=== PATIENT | male | born 1965 | race African-American/Black ===

== ENCOUNTER 2019-05-27 17:03 | Inpatient (IN) | payer MEDICAID ==
[~2019-05-27] VITALS: Ht 175.3 cm; Wt 95.3 kg
[2019-05-27] MEDS ORDERED: KLONOPIN0.5 MG PO (17:16)
[2019-05-27] MEDS ORDERED: NEURONTIN 300300 MG PO (17:17)
[2019-05-27] MEDS ORDERED: CYMBALTA20 MG PO (17:17)
[2019-05-27] MEDS ORDERED: TRAZODONE HCL150 MG PO (17:18)
[2019-05-27] MEDS ORDERED: TESSALON PERLE100 MG PO (17:19)
[2019-05-27] MEDS ORDERED: HYDROCODON-ACE1 EA10 PO (17:20)
[2019-05-27 18:11] LABS: BASOPHILS 0.9 % (0-2); EOSINOPHILS 3.9 % (0-7); HEMATOCRIT 47.4 % (42.0-54.0); HEMOGLOBIN 15.5 g/dL (13.5-17.5); IMMATURE GRANULOCYTES 0.2 % (0-5); LYMPHOCYTES 31.1 % (15-50); MCH 31.7 pg (26.0-34.0); MCHC 32.7 g/dL (31.0-37.0); MCV 96.9 fL (80.0-100.0); MEAN PLATELET VOLUME 9.6 fL (7.4-10.4); MONOCYTES 6.7 % (2-11); NEUTROPHILS 57.2 % (40-80); PLATELET COUNT 361 10x3/uL (130-400); RBC 4.89 10x6/uL (4.20-6.10); RDW 14.4 % (11.5-14.5); WBC 9.9 10x3/uL (4.8-10.8)
[2019-05-27 18:15] LABS: ANION GAP 14.7 mmol/L (8-16); CALCIUM 9.3 mg/dL (8.5-10.1); CARBON DIOXIDE 25.8 mmol/L (21.0-32.0); CREATININE - SERUM 1.1 mg/dL (0.6-1.3); POTASSIUM - SERUM 3.5 mmol/L (3.5-5.1)
[2019-05-27 18:29] LABS: ALBUMIN 3.7 g/dL (3.4-5.0); BILIRUBIN - TOTAL 0.63 mg/dL (0.2-1.3); PROTEIN - SERUM 7.8 g/dL (6.4-8.2)
[2019-05-27 19:09] LABS: CKMB 0.6 U/L (0.0-3.6); CREATINE KINASE 93 UL (21-232)
[2019-05-27 19:10] LABS: TROPONIN-I < 0.017 ng/mL (0.000-0.060)
[2019-05-27 20:44] VITALS: BP 153/85
--- NOTE | 2019-05-27 20:44 | NUR ---
REC'D PATIENT FROM ER TO ROOM 1206. PATIENT DENIES NEEDS AT THIS TIME. BED IN LOWEST POSITION AND CALL LIGHT WITHIN REACH. ENCOURAGED THE PATIENT TO CALL IF HE HAS NEEDS. VSS. WILL CONTINUE TO MONITOR.
[2019-05-27] MEDS ORDERED: CARDURA2 MG PO (22:41)
[2019-05-27] MEDS ORDERED: BACLOFEN10 MG PO (22:41)
[2019-05-27] MEDS ORDERED: TENORMIN50 MG PO (22:42)
[2019-05-27 22:43] VITALS: BP 153/85; BMI 31.0
[2019-05-28] VITALS (7 sets, daily range): BP systolic 122–164; BP diastolic 61–97; Ht 175.3 cm; Wt 95.3 kg
[2019-05-28 06:11] LABS: BASOPHILS 0.1 % (0-2); EOSINOPHILS 0 % (0-7); HEMATOCRIT 45.3 % (42.0-54.0); HEMOGLOBIN 14.7 g/dL (13.5-17.5); IMMATURE GRANULOCYTES 0.1 % (0-5); LYMPHOCYTES 7.5 % (15-50); MCH 31.2 pg (26.0-34.0); MCHC 32.5 g/dL (31.0-37.0); MCV 96.2 fL (80.0-100.0); MEAN PLATELET VOLUME 9.8 fL (7.4-10.4); MONOCYTES 0.5 % (2-11); NEUTROPHILS 91.8 % (40-80); PLATELET COUNT 395 10x3/uL (130-400); RBC 4.71 10x6/uL (4.20-6.10); RDW 14.3 % (11.5-14.5); WBC 8.4 10x3/uL (4.8-10.8)
[2019-05-28 06:28] LABS: ALBUMIN 3.3 g/dL (3.4-5.0); BILIRUBIN - TOTAL 0.29 mg/dL (0.2-1.3); CALCIUM 9.6 mg/dL (8.5-10.1); CARBON DIOXIDE 25.4 mmol/L (21.0-32.0); CREATININE - SERUM 1.3 mg/dL (0.6-1.3); PROTEIN - SERUM 6.8 g/dL (6.4-8.2)
[2019-05-28 06:37] LABS: ANION GAP 16.1 mmol/L (8-16); POTASSIUM - SERUM 4.5 mmol/L (3.5-5.1)
--- NOTE | 2019-05-28 07:33 | NUR ---
AM ROUNDS- PT IN BED, EATING BREAKFAST. A/O X4, RESP EVEN AND NONLABORED ON 2L NC. RT AC IV SL. MONITOR SHOWING SR WITH RATE OF 98. PT ASKED FOR A SODA, WILL PROVIDE PT WITH SODA. PT DENIES ANY OTHER NEEDS AT THIS TIME. CALL LIGHT IN REACH, NAD NOTED, WILL CONTINUE PLAN OF CARE.
--- NOTE | 2019-05-28 11:30 | NUR ---
SCHEDULED TYLENOL GIVEN, PT RATES PAIN LEVEL OF 7/10. PT DENIES ANY OTHER NEEDS AT THIS TIME. VITAL SIGNS STABLE, CALL LIGHT IN REACH, BEDSIDE RAILS X2, NAD NOTED, WILL CONTINUE TO MONITOR.
--- NOTE | 2019-05-28 14:24 | NUR ---
PT RESTING COMFORTABLY WITH EYES CLOSED, CALL LIGHT IN REACH, NAD NOTED, WILL CONTINUE TO MONITOR.
--- NOTE | 2019-05-28 15:00 | NUR ---
MEDICATIONS GIVEN ORDERED, PT RATES PAIN LEVEL OF 7/10, SCHEDULED NORCO GIVEN. IVPB LEVAQUIN HUNG AT THIS TIME. PT RESTING COMFORTABLY IN BED, DENIES ANY NEEDS AT THIS TIME. CALL LIGHT IN REACH, NAD NOTED, WILL CONTINUE TO MONITOR.
--- NOTE | 2019-05-28 16:19 | MORECARE ---
CASE MANAGEMENT DISCHARGE SUMMARY PATIENT: GAIL GALEANA UNIT: [id number] ADM DATE: 05/27/19 AGE: 54 : 63 SEX: M ROOM/BED: D.1206 AUTHOR: KRYSDOC PHYSICIAN: REFERRING PHYSICIAN: ANU MCKEON MD DATE OF SERVICE: 05/28/19 Discharge Plan Patient Name: GAIL GALEANA Facility: [facility]:[place] : 1965 Planned Disposition: Home Anticipated Discharge Date: Discharge Date: Expected LOS: Initial Reviewer: [id number] Initial Review Date: 05/28/2019 Generated: 05/28/19 5:19 pm Comments DCP- Discharge Planning Updated by [id number]: Bonnie Gonzalez on 05/28/19 3:[address] Patient Name: GAIL GALEANA Admission Status: ER Accout number: [id number] Admission Date: 05-27-2019 : 1965 Admission Diagnosis: Attending: ANU MCKEON Current LOS: 1 Anticipated DC Date: Planned Disposition: Home Primary Insurance: MEDICAID [place] Discharge Planning Comments: CM MET WITH PATIENT AFTER OBTAINING VERBAL CONSENT. STATES PLANS TO DISCHARGE TO HOME. DISCUSSED NEED FOR HH, REHAB OR EQUIPMENT, PATIENT STATES NO NEEDS EXCEPT PORTABLE 02. STATES HE HAD PORTABLE BUT WHEN HIS INSURANCE CHANGED THEY TOOK IT. HAS 02 WITH [facility], I WILL CONTACT THEM TO SEE WHAT THE ISSUE IS WITH IT. CM WILL FOLLOW AND ASSIST NEEDED. Arch Cushion Press Operator: Bonnie Gonzalez Appended by Bonnie Gonzalez on 05/28/2019 16:19 WET POUR SUPERVISOR: I SPOKE WITH DUANE AT [facility] AND THEY WILL NEED A WALK TEST BEFORE DISCHARGE SO THEY CAN SET HIM UP WITH PORTABLE OXYGEN. DCPIA - Discharge Planning Initial Assessment Updated by [email or web address]: Bonnie Gonzalez on 05/28/19 4:12 pm * Is the patient Alert and Oriented? Yes * PCP [facility] * [facility] * Preadmission Environment Home with Family * ADLs Independent * Other Equipment 02, NEBS, DID HAVE PORTABLE UNTIL INSURANCE CHANGED * List name and contact numbers for known caregivers / representatives who currently or will assist patient after discharge: JESSI, , * Verbal permission to speak to the caregivers and representatives has been obtained from the patient. Yes * Community resources currently utilized None * Additional services required to return to the preadmission environment? No * Can the patient safely return to the preadmission environment? Yes * Has this patient been hospitalized within the prior 30 days at any hospital? No External Providers External Provider: Kaitlin Jimenez Contact Date: Service Request Date: Service Type: Resolution: Reviewer: Comments: Patient Name: GAIL GALEANA Page 30101 at 1619 All edits/amendments must be made on the electronic document DICTATION DATE: 05/28/191617 PRINTING MACHINIST: KAILEE 05/28/191617 RPT#: [id number] [place] DATE: STATUS: ADM IN [facility] [address] [place] [address] END OF REPORT
--- NOTE | 2019-05-28 16:28 | MORECARE ---
CASE MANAGEMENT DISCHARGE SUMMARY PATIENT: GAIL GALEANA UNIT: [id number] ADM DATE: 05/27/19 AGE: 54 : 63 SEX: M ROOM/BED: D.1206 AUTHOR: KRYSDOC PHYSICIAN: REFERRING PHYSICIAN: ANU MCKEON MD DATE OF SERVICE: 05/28/19 Discharge Plan Patient Name: GAIL GALEANA Facility: [facility]:[place] : 1965 Planned Disposition: Home Anticipated Discharge Date: Discharge Date: Expected LOS: Initial Reviewer: [email or web address] Initial Review Date: 05/28/2019 Generated: 05/28/19 5:27 pm Comments DCP- Discharge Planning Updated by [email or web address]: Bonnie Gonzalez on 05/28/19 3:[address] Patient Name: GAIL GALEANA Admission Status: ER Accout number: [id number] Admission Date: 05-27-2019 : 1965 Admission Diagnosis: Attending: ANU MCKEON Current LOS: 1 Anticipated DC Date: Planned Disposition: Home Primary Insurance: MEDICAID [place] Discharge Planning Comments: CM MET WITH PATIENT AFTER OBTAINING VERBAL CONSENT. STATES PLANS TO DISCHARGE TO HOME. DISCUSSED NEED FOR HH, REHAB OR EQUIPMENT, PATIENT STATES NO NEEDS EXCEPT PORTABLE 02. STATES HE HAD PORTABLE BUT WHEN HIS INSURANCE CHANGED THEY TOOK IT. HAS 02 WITH [facility], I WILL CONTACT THEM TO SEE WHAT THE ISSUE IS WITH IT. CM WILL FOLLOW AND ASSIST NEEDED. Chip Loft Worker: Bonnie Gonzalez Appended by Bonnie Gonzalez on 05/28/2019 16:19 STORE DELI MANAGER: I SPOKE WITH DUANE AT [facility] AND THEY WILL NEED A WALK TEST BEFORE DISCHARGE SO THEY CAN SET HIM UP WITH PORTABLE OXYGEN. DCPIA - Discharge Planning Initial Assessment Updated by [id number]: Bonnie Gonzalez on 05/28/19 4:12 pm * Is the patient Alert and Oriented? Yes * PCP [facility] * [facility] * Preadmission Environment Home with Family * ADLs Independent * Other Equipment 02, NEBS, DID HAVE PORTABLE UNTIL INSURANCE CHANGED * List name and contact numbers for known caregivers / representatives who currently or will assist patient after discharge: JESSI, , * Verbal permission to speak to the caregivers and representatives has been obtained from the patient. Yes * Community resources currently utilized None * Additional services required to return to the preadmission environment? No * Can the patient safely return to the preadmission environment? Yes * Has this patient been hospitalized within the prior 30 days at any hospital? No Last DP export: 05/28/19 3:19 p Patient Name: GAIL GALEANA Page [phone] at 1628 All edits/amendments must be made on the electronic document DICTATION DATE: 05/28/191626 CURTAIN DRIER: KAILEE 05/28/191626 RPT#: [id number] DC DATE: STATUS: ADM IN [facility] [address] [place] [address] END OF REPORT
--- NOTE | 2019-05-28 17:11 | NUR ---
INFORMED PT OF NEED FOR URINE SAMPLE, PROVIDED PT WITH COLLECTION CONTAINER AND ASKED HIM TO NOTIFY THIS NURSE WHEN SAMPLE IS READY.
--- NOTE | 2019-05-28 19:21 | NUR ---
PATIENT RESTING IN BED WITH NO S/S OF DISTRESS. BROUGHT PATIENT A HOT PACK PER HIS REQUEST. VSS. PATIENT DENIES OTHER NEEDS AT THIS TIME. BED IN LOWEST POSITION AND CALL LIGHT WITHIN REACH. ENCOURAGED THE PATIENT TO CALL IF HE HAS NEEDS. WILL CONTINUE TO MONITOR.
[2019-05-28 22:49] LABS: APPEARANCE CLEAR (CLEAR); BILIRUBIN NEGATIVE (NEGATIVE); COLOR YELLOW (YELLOW); GLUCOSE NEGATIVE (NEGATIVE); KETONE NEGATIVE (NEGATIVE); NITRITE NEGATIVE (NEGATIVE); PROTEIN NEGATIVE (NEGATIVE); UROBILINOGEN NORMAL (NORMAL)
[2019-05-28 22:51] LABS: UDS - AMPHET NEGATIVE QUAL (NEGATIVE); UDS - BARB NEGATIVE QUAL (NEGATIVE); UDS - BENZO NEGATIVE QUAL (NEGATIVE); UDS - COCAINE NEGATIVE QUAL (NEGATIVE); UDS - OPIATE NEGATIVE QUAL (NEGATIVE); UDS - PCP NEGATIVE QUAL (NEGATIVE); UDS - THC NEGATIVE QUAL (NEGATIVE)
[2019-05-29 03:13] VITALS: BP 135/76
[2019-05-29 06:17] LABS: ANION GAP 12.3 mmol/L (8-16); CALCIUM 9.5 mg/dL (8.5-10.1); CREATININE - SERUM 1.1 mg/dL (0.6-1.3); POTASSIUM - SERUM 4.3 mmol/L (3.5-5.1)
[2019-05-29 06:53] LABS: HEMATOCRIT 44.1 % (42.0-54.0); HEMOGLOBIN 14.6 g/dL (13.5-17.5); LYMPHOCYTES 4.8 % (15-50); MCH 31.3 pg (26.0-34.0); MCHC 33.1 g/dL (31.0-37.0); MCV 94.4 fL (80.0-100.0); NEUTROPHILS 91.5 % (40-80); PLATELET COUNT 323 10x3/uL (130-400); RBC 4.67 10x6/uL (4.20-6.10); RDW 14.1 % (11.5-14.5); WBC 17.1 10x3/uL (4.8-10.8)
--- NOTE | 2019-05-29 07:29 | NUR ---
PT RESTING IN BED, EYES CLOSED. RR ARE EVEN AND UNLABORED. WCTM.
[2019-05-29 09:00] VITALS: BP 139/75
--- NOTE | 2019-05-29 13:30 | NUR ---
FLUTTER VALVE AND INSTRUCTION PROVIDED TO PT PER DR DEONNA PERAZA. PT STATES AND DEMONSTRATES UNDERSTANDING.
[2019-05-29 20:08] VITALS: BP 148/87
--- NOTE | 2019-05-29 22:58 | NUR ---
ASSESSED AT THE BEGINNING OF THE SHIFT. PT IS ALERT AND ORIENTED, ABLE TO VERBALIZE NEEDS. ASSISTED UP TO BATHROOM TO VOID AND IS IN BED WATCHING FOOTBALL. IV SITE WAS DRAINING FLUIDS AND AT THIS TIME WAS DC'D. WILL RESTART IT AGAIN LATER.
[2019-05-30] VITALS: BP 159/96
[2019-05-30 04:00] VITALS: BP 142/76
[2019-05-30 05:56] LABS: BASOPHILS 0 % (0-2); EOSINOPHILS 0 % (0-7); HEMATOCRIT 45.4 % (42.0-54.0); HEMOGLOBIN 14.8 g/dL (13.5-17.5); IMMATURE GRANULOCYTES 0.3 % (0-5); LYMPHOCYTES 5.2 % (15-50); MCHC 32.6 g/dL (31.0-37.0); MCV 95.2 fL (80.0-100.0); MEAN PLATELET VOLUME 9.9 fL (7.4-10.4); MONOCYTES 5.5 % (2-11); PLATELET COUNT 386 10x3/uL (130-400); RBC 4.77 10x6/uL (4.20-6.10); RDW 14.2 % (11.5-14.5); WBC 16.4 10x3/uL (4.8-10.8)
[2019-05-30 06:06] LABS: ANION GAP 10.4 mmol/L (8-16); CALCIUM 9.6 mg/dL (8.5-10.1); CARBON DIOXIDE 29.4 mmol/L (21.0-32.0); CREATININE - SERUM 1.1 mg/dL (0.6-1.3); POTASSIUM - SERUM 4.8 mmol/L (3.5-5.1)
--- NOTE | 2019-05-30 07:19 | NUR ---
PT RESTING IN BED, TALKING ON PHONE. O2 IN PLACE AT 2LPM. IV TO LEFT HAND IS S'LOCKED. PT DENIES NEEDS. WCTM.
[2019-05-30 08:00] VITALS: BP 152/91
[2019-05-30 20:05] VITALS: BP 151/84
[2019-05-31] VITALS: BP 165/105
--- NOTE | 2019-05-31 03:36 | NUR ---
ASSESSED AT THE BEGINNING OF THE SHIFT. PT IS ALERT AND ORIENTED, ABLE TP VERBALIZE NEEDS. HE IS WEARING O2 AT 2 LITERS AND IS SHOWING 80'S SR ON HIS TELEMETRY. [facility] HAS BEEN SET UP SCHEDUELED FOR HIS CHRONIC BACK PAIN AND THIS SEEMS TO BE WORKING. HE HAS BEEN UP TO THE BATHROOM AD AMY AND WATCHING TV MOST OF THE NIGHT. BED IS LOW AND RAILS UP X'S 2.
[2019-05-31 04:00] VITALS: BP 158/53
[2019-05-31 05:47] LABS: BASOPHILS 0 % (0-2); EOSINOPHILS 0 % (0-7); HEMATOCRIT 45.5 % (42.0-54.0); HEMOGLOBIN 15.1 g/dL (13.5-17.5); IMMATURE GRANULOCYTES 0.4 % (0-5); LYMPHOCYTES 5.8 % (15-50); MCH 31.3 pg (26.0-34.0); MCHC 33.2 g/dL (31.0-37.0); MCV 94.4 fL (80.0-100.0); MEAN PLATELET VOLUME 9.8 fL (7.4-10.4); MONOCYTES 7.4 % (2-11); NEUTROPHILS 86.4 % (40-80); PLATELET COUNT 386 10x3/uL (130-400); RBC 4.82 10x6/uL (4.20-6.10); RDW 14.2 % (11.5-14.5); WBC 15.2 10x3/uL (4.8-10.8)
[2019-05-31 06:17] LABS: CALC OSMOLALITY 279 mosm/kg (275-300); CALCIUM 9.7 mg/dL (8.5-10.1); CARBON DIOXIDE 29.8 mmol/L (21.0-32.0); CHLORIDE - SERUM 99 mmol/L (98-107); GLUCOSE 120 mg/dL (74-106); POTASSIUM - SERUM 4.5 mmol/L (3.5-5.1); SODIUM 138 mmol/L (136-145); UREA NITROGEN 21 mg/dL (7-18); eGFR NON AFRICAN AMERICAN 82 mL/min (90-120)
[2019-05-31 07:56] VITALS: BP 160/90
[2019-05-31 12:18] VITALS: BP 143/74
--- NOTE | 2019-05-31 12:35 | NUR ---
PT LYING IN BED. RESTING QUIETLY. O2 AT 2L VIA NC. PT STATES HE HAS NO FURTHER NEEDS AT THIS TIME. BED LOW. CL IN REACH.
--- NOTE | 2019-05-31 14:43 | NUR ---
LEFT HAND 22G IV INFILTRATED. DC'D WITH CATH INTACT. PT STATES HE IS A HARD STICK AND "I NEED TO CALL SOMEBODY." CALLED ER AND THEY STATED THEY WILL TALK TO THE CHARGE NURSE AND SEE IF THEY CAN'T SEND SOMEBODY.
--- NOTE | 2019-05-31 15:17 | NUR ---
STATED TO DR. MCKEON THAT PT HAS NO IV ACCESS AND ER IS SUPPOSSED TO COME AND TRY GAIN ACCESS BUT PT IS ON SOLUMEDROL AND LEVAQUIN IV. HE STATES WE COULD CHANGE THE LEVAQUIN TO PT BUT JUST GET A MIDLINE. I STATED TO HIM VASCULAR ACCESS NURSE IS NOT HERE ON THE WEEKEND TO PLACE A MIDLINE. HE STATES "OH, SHE'S NOT. WELL OK." AND WENT INTO A PATIENT'S ROOM.
--- NOTE | 2019-05-31 15:20 | NUR ---
PT TOOK SHOWER BY FRED.
--- NOTE | 2019-05-31 19:07 | NUR ---
I have reviewed this patient and I concur with the Shift Assessment completed by the Licensed Practical Nurse today this shift.
[2019-05-31 19:27] VITALS: BP 160/93
--- NOTE | 2019-05-31 19:27 | NUR ---
PATIENT RESTING IN BED WITH NO S/S OF DISTRESS AND DENIES NEEDS AT THIS TIME. VSS. BED IN LOWEST POSITION AND CALL LIGHT WITHIN REACH. ENCOURAGED THE PATIENT TO CALL IF HE HAS NEEDS. WILL CONTINUE TO MONITOR.
--- NOTE | 2019-05-31 20:42 | NUR ---
PATIENT RESTING IN BED AND DENIES NEEDS AT THIS TIME. ADMINISTERED MEDS PER ORDERS. PATIENT DENIES OTHER NEEDS AT THIS TIME. BED IN LOWEST POSITION AND CALL LIGHT WITHIN REACH. ENCOURAGED THE PATIENT TO CALL IF HE HAS NEEDS. WILL CONTINUE TO MONITOR.
--- NOTE | 2019-05-31 22:58 | NUR ---
UNABLE TO OBTAIN IV ACCESS
[2019-05-31 23:45] VITALS: BP 165/94
--- NOTE | 2019-06-01 03:47 | NUR ---
PATIENT RESTING IN BED WITH EYES CLOSED AND NO S/S OF DISTRESS. WILL CONTINUE TO MONITOR.
[2019-06-01 04:44] VITALS: BP 157/95
[2019-06-01 05:32] LABS: BASOPHILS 0 % (0-2); EOSINOPHILS 0 % (0-7); HEMATOCRIT 46.3 % (42.0-54.0); IMMATURE GRANULOCYTES 0.7 % (0-5); MCH 30.9 pg (26.0-34.0); MCHC 32.4 g/dL (31.0-37.0); MCV 95.3 fL (80.0-100.0); MONOCYTES 9.7 % (2-11); NEUTROPHILS 78.6 % (40-80); PLATELET COUNT 394 10x3/uL (130-400); RBC 4.86 10x6/uL (4.20-6.10); RDW 14.3 % (11.5-14.5); WBC 14.9 10x3/uL (4.8-10.8)
[2019-06-01 05:57] LABS: ANION GAP 11.1 mmol/L (8-16); CALCIUM 9.1 mg/dL (8.5-10.1); CARBON DIOXIDE 31.6 mmol/L (21.0-32.0); CREATININE - SERUM 1.2 mg/dL (0.6-1.3)
[2019-06-01 05:58] LABS: POTASSIUM - SERUM 3.7 mmol/L (3.5-5.1)
[2019-06-01 07:40] VITALS: BP 164/92
--- NOTE | 2019-06-01 07:59 | NUR ---
PT SITTING UP IN BED EATING BREAKFAST. RR EVEN AND UNLABORED. FREQUESNT, NONPRODUCTIVE COUGH. WHEEZING NOTED TO BILATERAL LOWER LOBES. AXO. ASSESSMENT COMPLETE. PT STATES HE HAS A HEADACHE FROM COUGHING BUT SAID HE ALREADY HAD PAIN MEDICATION AND DOES NOT NEED ANYMORE AT THIS TIME. VSS. BED IN LOWEST POSITION. CALL LIGHT WITHIN REACH. WILL CONTINUE TO MONITOR.
--- NOTE | 2019-06-01 11:05 | NUR ---
I have reviewed this patient and I concur with the Shift Assessment completed by the Licensed Practical Nurse today this shift.
--- NOTE | 2019-06-01 11:51 | NUR ---
22G SITED TO RIGHT FOREARM X2 ATTEMPTS.
[2019-06-01 19:22] VITALS: BP 144/99
--- NOTE | 2019-06-01 20:57 | NUR ---
ADMINISTERED MEDS PER ORDERS. PATIENT DENIES OTHER NEEDS AT THIS TIME. ENCOURAGED PATIENT TO CALL IF HE HAS NEEDS.
[2019-06-01 23:10] VITALS: BP 158/95
[2019-06-02 04:44] VITALS: BP 161/93
[2019-06-02 06:31] LABS: CALC OSMOLALITY 285 mosm/kg (275-300); CALCIUM 9.5 mg/dL (8.5-10.1); CARBON DIOXIDE 30.8 mmol/L (21.0-32.0); CHLORIDE - SERUM 101 mmol/L (98-107); GLUCOSE 121 mg/dL (74-106); SODIUM 141 mmol/L (136-145); UREA NITROGEN 24 mg/dL (7-18); eGFR NON AFRICAN AMERICAN 82 mL/min (90-120)
[2019-06-02 06:37] LABS: POTASSIUM - SERUM 5.3 mmol/L (3.5-5.1)
[2019-06-02 06:44] LABS: BASOPHILS 0.1 % (0-2); EOSINOPHILS 0 % (0-7); HEMATOCRIT 46.5 % (42.0-54.0); HEMOGLOBIN 15.4 g/dL (13.5-17.5); IMMATURE GRANULOCYTES 0.9 % (0-5); LYMPHOCYTES 6.7 % (15-50); MCH 31.1 pg (26.0-34.0); MCHC 33.1 g/dL (31.0-37.0); MCV 93.9 fL (80.0-100.0); MEAN PLATELET VOLUME 10.1 fL (7.4-10.4); NEUTROPHILS 86.3 % (40-80); PLATELET COUNT 374 10x3/uL (130-400); RBC 4.95 10x6/uL (4.20-6.10); RDW 14.1 % (11.5-14.5); WBC 11.7 10x3/uL (4.8-10.8)
[2019-06-02 07:00] VITALS: BP 168/97
--- NOTE | 2019-06-02 07:07 | NUR ---
PT RESTING IN BED WATCHING TV. VSS AND WNL. CALL LIGHT WITHIN REACH. SHIFT ASSESSMENT PERFORMED, PT ANSWERS ALL QUESTIONS. 2L NC NOTED. PT STATES HE HAD A BM THIS AM. DENIES ANY NEEDS AT THIS TIME, WILL CONT TO FOLLOW POC
[2019-06-02 11:21] VITALS: BP 138/83
--- NOTE | 2019-06-02 12:01 | NUR ---
PT RESTING IN BED WATCHING TV. VSS AND WNL. DENIES ANY NEEDS AT THIS TIME, CALL LIGHT WITHIN REACH. WILL CONT TO FOLLOW POC
[2019-06-02 16:02] VITALS: BP 173/94
--- NOTE | 2019-06-02 18:30 | NUR ---
PATIENT RESTING WITH NO NEEDS VOICED, SCHEDULED NORCO GIVEN FOR CHRONIC BACK PAIN. CL IN REACH
--- NOTE | 2019-06-02 19:25 | NUR ---
PT LYING IN BED WITHOUT DISTRESS, AOX4. REQUESTED AND GIVEN ICE. DENIES OTHER NEEDS. BED LOWEST POSITION, SRX2, CL IN REACH. WILL CTM
[2019-06-02 19:27] VITALS: BP 152/90
--- NOTE | 2019-06-02 21:05 | NUR ---
ADMINISTERED MEDS ORDERED. REQUESTED TRAZADONE BE GIVEN LATER, WILL CALL WHEN READY. DENIES OTHER NEEDS. CL IN REACH, WILL CTM
--- NOTE | 2019-06-02 23:00 | NUR ---
PT REQUESTED TRAZADONE AT THIS TIME. ADMINISTERED WITH SCHEDULED NORCO. STATES PAIN IN BACK 12/02. REQUESTED AND GIVEN SANDWICH TRAY. DENIES OTHER NEEDS. CL IN REACH, WILL CTM
--- NOTE | 2019-06-02 23:28 | NUR ---
PT REQUESTED AND GIVEN COUGH MED, DENIES OTHER NEEDS. CL IN REACH, WILL CTM
[2019-06-02 23:49] VITALS: BP 174/94
[2019-06-03 05:00] VITALS: BP 135/79
[2019-06-03 05:53] LABS: BASOPHILS 0.1 % (0-2); EOSINOPHILS 0 % (0-7); HEMATOCRIT 43.5 % (42.0-54.0); HEMOGLOBIN 14.7 g/dL (13.5-17.5); LYMPHOCYTES 5.1 % (15-50); MCHC 33.8 g/dL (31.0-37.0); MCV 94.8 fL (80.0-100.0); MEAN PLATELET VOLUME 10.3 fL (7.4-10.4); MONOCYTES 8.4 % (2-11); NEUTROPHILS 85.4 % (40-80); PLATELET COUNT 366 10x3/uL (130-400); RBC 4.59 10x6/uL (4.20-6.10); RDW 14.3 % (11.5-14.5)
[2019-06-03 06:00] LABS: WBC 18.4 10x3/uL (4.8-10.8)
[2019-06-03 06:27] LABS: ALBUMIN 2.9 g/dL (3.4-5.0); ANION GAP 15.9 mmol/L (8-16); BILIRUBIN - TOTAL 0.21 mg/dL (0.2-1.3); CALCIUM 8.6 mg/dL (8.5-10.1); CARBON DIOXIDE 25.7 mmol/L (21.0-32.0); CREATININE - SERUM 1.2 mg/dL (0.6-1.3); POTASSIUM - SERUM 4.6 mmol/L (3.5-5.1)
[2019-06-03 07:28] VITALS: BP 137/75
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
[2019-06-03 12:09] VITALS: BP 152/88
--- NOTE | 2019-06-03 15:34 | NUR ---
Nutrition Follow-up: Diet: Cardiac PO intake: 100% all meals; reports good appetite Last BM: 06/02/19 x 4. WT: 210# (05/28/19), no new wt Significant meds: solumedrol, baclofen. Labs noted: glu 194mg/dL Chart reviewed and interview with patient. Patient remains at low nutrition risk. Recommend continue current diet. Will continue to rescreen for nutrition risk per policy.
[2019-06-03 16:22] VITALS: BP 148/85
--- NOTE | 2019-06-03 19:20 | NUR ---
STANDING UP IN ROOM. REQUESTS SHOWER. RT IN ROOM ALSO TO DO UD. EXPLAINED TO PT THAT HE COULD SHOWER LATER. U/S TECH HERE NOW ALSO FRO U/S OF GB. PT SLIGHTLY ANXIOUS. ALERT AND ORIENTED X4. RESP IRREG, LABORED. SOB. O2 @ 2LNC. NONPROD COUGH NOTED. NO EDEMA NOTED. TELEMETRY SHOWS SR WITH RATE OF 90. SALINE LOCK NOTED TO RT FOREARM. RATES PAIN IN BACK 7. CL IN REACH.
[2019-06-03 19:30] VITALS: BP 182/98
--- NOTE | 2019-06-03 20:30 | NUR ---
REQUESTS COUGH MED. MEDICATED WITH PHEN WITH COD. CL IN REACH.
--- NOTE | 2019-06-03 21:30 | NUR ---
BECKIE SHOWER AT THIS TIME.
[2019-06-04] VITALS (13 sets, daily range): BP systolic 120–185; BP diastolic 68–112
--- NOTE | 2019-06-04 01:48 | NUR ---
HAS RESTED WELL TONIGHT. NO DISTRESS. LYING SUPINE IN BED. CL IN REACH.
--- NOTE | 2019-06-04 02:52 | NUR ---
LYING ON RT SIDE IN BED WITH EYES CLOSED. NO DISTRESS. RESP NONLABORED. CL IN REACH.
--- NOTE | 2019-06-04 03:38 | NUR ---
AWAKENED FOR V/S. LYING ON RT SIDE IN BED. NO DISTRESS. O2 IN USE. DENIES NEEDS. CL IN REACH.
[2019-06-04 06:27] LABS: HEMOGLOBIN 14.8 g/dL (13.5-17.5); MCH 30.7 pg (26.0-34.0); MCHC 32.2 g/dL (31.0-37.0); MCV 95.4 fL (80.0-100.0); MEAN PLATELET VOLUME 10.2 fL (7.4-10.4); PLATELET COUNT 382 10x3/uL (130-400); RBC 4.82 10x6/uL (4.20-6.10); RDW 14.3 % (11.5-14.5); WBC 20.1 10x3/uL (4.8-10.8)
[2019-06-04 06:49] LABS: APTT 21.9 SECONDS (22.8-39.4); INR 0.9 (0.85-1.17); PROTIME 12.1 SECONDS (11.6-15.0)
[2019-06-04 06:59] LABS: ANION GAP 11.9 mmol/L (8-16); BILIRUBIN - TOTAL 0.21 mg/dL (0.2-1.3); CALCIUM 9.2 mg/dL (8.5-10.1); CARBON DIOXIDE 31.1 mmol/L (21.0-32.0); CREATININE - SERUM 1.1 mg/dL (0.6-1.3); PROTEIN - SERUM 6.4 g/dL (6.4-8.2)
--- NOTE | 2019-06-04 07:00 | NUR ---
PT REPORT RECEIVED FROM SECURITY SERVICES MANAGER NURSE. NO VISIBLE SIGNS OF DISTRESS NOTED. SHIFT ASSESSMENT COMPLETED. WILL CONTINUE TO MONITOR
--- NOTE | 2019-06-04 11:00 | NUR ---
PT LEAVING TO GO GET BRONCHOSCOPY.
[2019-06-04 11:10] LABS: EOSINOPHILS 2 % (0-7); HYPOCHROMASIA OCC; LYMPHOCYTES 16 % (15-50); MONOCYTES 11 % (2-11); NEUTROPHILS 71 % (40-80); PLATELET ESTIMATE NORMAL; ROULEAUX OCC
--- NOTE | 2019-06-04 12:00 | NUR ---
PT RETURNING FROM BRONCHOSCOPY. TOLERATED WELL. WILL CONTINUE TO MONITOR
--- NOTE | 2019-06-04 18:30 | NUR ---
PT UPSET NO MEAL TRAY DELIVERED. HOWEVER PT DOES HAVE SALAD IN [place]. SAID HE WOULD EAT THAT. CHANGED DIET ORDER TO [facility].
--- NOTE | 2019-06-04 19:20 | NUR ---
PATIENT RESTING IN BED WITH NO S/S OF DISTRESS. PATIENT DENIES NEEDS AT THIS TIME. VSS. PATIENT DENIES NEEDS AT THIS TIME. BED IN LOWEST POSITION AND CALL LIGHT WITHIN REACH. ENCOURAGED THE PATIENT TO CALL IF HE HAS NEEDS. WILL CONTINUE TO MONITOR.
--- NOTE | 2019-06-04 21:13 | NUR ---
PATIENT RESTING IN BED WITH NO S/S OF DISTRESS. ADMINISTERED MEDS PER ORDERS. PATIENT DENIES OTHER NEEDS AT THIS TIME. BED IN LOWEST POSITION AND CALL LIGHT WITHIN REACH. ENCOURAGED THE PATIENT TO CALL IF HE HAS NEEDS.
[2019-06-05 03:30] VITALS: BP 114/81
[2019-06-05 05:38] LABS: BASOPHILS 0.1 % (0-2); EOSINOPHILS 0.1 % (0-7); HEMATOCRIT 46.5 % (42.0-54.0); HEMOGLOBIN 15.2 g/dL (13.5-17.5); IMMATURE GRANULOCYTES 1.4 % (0-5); LYMPHOCYTES 5.9 % (15-50); MCH 30.9 pg (26.0-34.0); MCHC 32.7 g/dL (31.0-37.0); MCV 94.5 fL (80.0-100.0); MEAN PLATELET VOLUME 10.3 fL (7.4-10.4); MONOCYTES 7.3 % (2-11); NEUTROPHILS 85.2 % (40-80); PLATELET COUNT 318 10x3/uL (130-400); RBC 4.92 10x6/uL (4.20-6.10); RDW 14.3 % (11.5-14.5); WBC 17.5 10x3/uL (4.8-10.8)
[2019-06-05 06:04] LABS: ALBUMIN 2.9 g/dL (3.4-5.0); ANION GAP 10.3 mmol/L (8-16); BILIRUBIN - TOTAL 0.34 mg/dL (0.2-1.3); CARBON DIOXIDE 32.7 mmol/L (21.0-32.0); CREATININE - SERUM 1.1 mg/dL (0.6-1.3); PROTEIN - SERUM 6.4 g/dL (6.4-8.2)
[2019-06-05 07:00] VITALS: BP 143/92
--- NOTE | 2019-06-05 07:15 | NUR ---
REPORT RECEIVED. PT LAYING IN BED WATCHING TV. ON O2 AT 2L VIA NC. ALERT AND ORIENTED AND GETS UP AD AMY. ON TELEMETRY. IN SINUS RHYTHM. HAS AN IV TO HIS LEFT FOREARM THAT IS SALINE LOCKED. VSS. NO COMPLAINTS OR NEEDS AT THIS TIME. WILL CONTINUE TO MONITOR.
--- NOTE | 2019-06-05 09:35 | NUR ---
COUGH MEDICATION GIVEN PER REQUEST.
--- NOTE | 2019-06-05 10:16 | NUR ---
RECEIVING BREATHING TX AT THIS TIME.
[2019-06-05 11:00] VITALS: BP 161/87
--- NOTE | 2019-06-05 11:00 | NUR ---
PT UP WALKING IN ROOM. BACK TO BED. VSS. NO COMPLAINTS OR NEEDS AT THIS TIME.
--- NOTE | 2019-06-05 13:03 | NUR ---
PT FINISHED LUNCH. NO OTHER NEEDS AT THIS TIME. CALL LIGHT IN REACH.
[2019-06-05 15:00] VITALS: BP 162/92
--- NOTE | 2019-06-05 15:17 | NUR ---
PT UP WALKING AROUND IN ROOM. NO COMPLAINTS OR NEEDS AT THIS TIME.
[2019-06-05 16:08] LABS: ACID FAST SMEAR Negative (()); AFB SPECIMEN PROCESSING Concentration (())
--- NOTE | 2019-06-05 17:30 | NUR ---
PT SITTING UP IN BED EATING DINNER. NO COMPLAINTS OR NEEDS AT THIS TIME. WILL CONTINUE TO MONITOR.
[2019-06-05 20:00] VITALS: BP 157/87
--- NOTE | 2019-06-05 20:00 | NUR ---
ALERT RESTING IN BED, DENIES PAIN OR NEEDS AT THIS TIME, SEE SHIFT ASSESSMENT CALL LIGHT IN REACH
[2019-06-06] VITALS: BP 142/82
[2019-06-06 04:00] VITALS: BP 109/68
[2019-06-06 06:33] LABS: ALBUMIN 2.8 g/dL (3.4-5.0); ANION GAP 13.5 mmol/L (8-16); BILIRUBIN - TOTAL 0.18 mg/dL (0.2-1.3); CALCIUM 8.7 mg/dL (8.5-10.1); CARBON DIOXIDE 30.3 mmol/L (21.0-32.0); CREATININE - SERUM 1.2 mg/dL (0.6-1.3); POTASSIUM - SERUM 4.8 mmol/L (3.5-5.1); PROTEIN - SERUM 6.1 g/dL (6.4-8.2)
[2019-06-06 06:34] LABS: HEMATOCRIT 44.8 % (42.0-54.0); HEMOGLOBIN 14.6 g/dL (13.5-17.5); MCH 30.7 pg (26.0-34.0); MCHC 32.6 g/dL (31.0-37.0); MCV 94.1 fL (80.0-100.0); MEAN PLATELET VOLUME 9.5 fL (7.4-10.4); PLATELET COUNT 332 10x3/uL (130-400); RBC 4.76 10x6/uL (4.20-6.10); RDW 14.6 % (11.5-14.5); WBC 21.2 10x3/uL (4.8-10.8)
[2019-06-06 09:26] VITALS: BP 152/88
[2019-06-06 11:24] LABS: ANISOCYTOSIS OCC; LYMPHOCYTES 13 % (15-50); MONOCYTES 12 % (2-11); NEUTROPHILS 72 % (40-80); ROULEAUX OCC
[2019-06-06 11:37] LABS: PLATELET ESTIMATE NORMAL
[2019-06-06 13:10] LABS: FUNGUS STAIN Final report (())
--- NOTE | 2019-06-06 14:34 | NUR ---
NO TX GIVEN HAVING SWALLOW EVAL
--- NOTE | 2019-06-06 17:45 | NUR ---
RECEIVED TO ROOM 220 VIA Naubo FORM [employer] 3. ALERT AND ORIENTED. DENIES NEEDS.
--- NOTE | 2019-06-06 19:15 | NUR ---
PATIENT ALERT AND ORIENTED WHEN ENTERING THE ROOM. HOB ELEVATED TO A 35 DEGREE ANGLE. PATIENT HAS KVO FLUIDS RUNNING AT THIS TIME TO THE LEFT FOREARM. IV IS PATENT WITH NO SWELLING OR REDNESS NOTED AT THE INSERTION SITE. PATIENT WEARING 2L NC AT THIS TIME. AUSCULTATED LUNG SOUNDS. EXPIRATORY WHEEZES BILATERALLY. PATIENT GETS OUT OF BREATH WHEN TALKING AND WALKING. FREQUENT COUGH NOTED BUT DENIES COUGH SYRUP AT THIS TIME. PATIENT COMPLAINS OF MOUTH SORES. HAS LEMONADE AT BEDSIDE. ADVISED THAT THE CITRUS MAY IRRITATE MOUTH SORES. PATIENT VERBALIZES UNDERSTANDING. DENIES FURTHER NEEDS AT THIS TIME CPOC.
[2019-06-06 20:00] VITALS: BP 139/84
[2019-06-06 23:57] VITALS: BP 159/93
[2019-06-07 04:00] VITALS: BP 169/89
--- NOTE | 2019-06-07 04:21 | NUR ---
I have reviewed this patient and I concur with the Shift Assessment completed by the Licensed Practical Nurse today this shift.
[2019-06-07 04:22] LABS: BASOPHILS 0 % (0-2); EOSINOPHILS 0 % (0-7); HEMATOCRIT 43.8 % (42.0-54.0); HEMOGLOBIN 14.3 g/dL (13.5-17.5); IMMATURE GRANULOCYTES 2.3 % (0-5); MCH 30.6 pg (26.0-34.0); MCHC 32.6 g/dL (31.0-37.0); MCV 93.8 fL (80.0-100.0); MEAN PLATELET VOLUME 9.7 fL (7.4-10.4); MONOCYTES 5.6 % (2-11); NEUTROPHILS 88.1 % (40-80); PLATELET COUNT 298 10x3/uL (130-400); RBC 4.67 10x6/uL (4.20-6.10); RDW 14.4 % (11.5-14.5); WBC 24.3 10x3/uL (4.8-10.8)
[2019-06-07 04:40] LABS: ALBUMIN 2.8 g/dL (3.4-5.0); ANION GAP 13.5 mmol/L (8-16); BILIRUBIN - TOTAL 0.26 mg/dL (0.2-1.3); CALCIUM 8.8 mg/dL (8.5-10.1); CARBON DIOXIDE 27.1 mmol/L (21.0-32.0); CREATININE - SERUM 1.2 mg/dL (0.6-1.3); POTASSIUM - SERUM 4.6 mmol/L (3.5-5.1)
--- NOTE | 2019-06-07 08:05 | NUR ---
PT RESTING IN BED WATCHING TV. DYSPNEA UPON EXERTION. O2 @ 1L NC IN PLACE. REPORTS PAIN 5/10 AT THIS TIME. DISCUSSED NEXT TIME PAIN MED CAN BE GIVEN PER MD ORDERS. PT VOICES UNDERSTANDING. SALINE LOC TO LEFT FOREARM, SITE WITHOUT REDNESS OR EDEMA. DENIES FURTHER NEEDS AT THIS TIME. CL WITHIN REACH. ENCOURAGED TO CALL WITH NEEDS. CONTINUE POC
[2019-06-07 08:06] VITALS: BP 154/82
[2019-06-07 12:00] VITALS: BP 131/77
[2019-06-07 16:11] VITALS: BP 157/86
--- NOTE | 2019-06-07 18:53 | MORECARE ---
CASE MANAGEMENT DISCHARGE SUMMARY PATIENT: GAIL GALEANA UNIT: [id number] ADM DATE: 05/27/19 AGE: 54 : 63 SEX: M ROOM/BED: D.2202 AUTHOR: KRYS,DOC PHYSICIAN: REFERRING PHYSICIAN: ANU MCKEON MD DATE OF SERVICE: 06/07/19 Discharge Plan Patient Name: GAIL GALEANA Facility: [facility]:[place] : 1965 Planned Disposition: Home Anticipated Discharge Date: Discharge Date: Expected LOS: Initial Reviewer: [email or web address] Initial Review Date: 05/28/2019 Generated: 06/07/19 7:52 pm Comments DCP- Discharge Planning Updated by [email or web address]: Emelina Redman on 06/07/19 5:[address] Duane, with [facility] called and states the patient has an O2 tank to go home with, but will require a new WALK Test 12/15 am, in order to re-qualify. DCP- Discharge Planning Updated by [id number]: Bonnie Gonzalez on 05/28/19 3:[address] Patient Name: GAIL GALEANA Admission Status: ER Accout number: [id number] Admission Date: 05-27-2019 : 1965 Admission Diagnosis: Attending: ANU MCKEON Current LOS: 1 Anticipated DC Date: Planned Disposition: Home Primary Insurance: MEDICAID [place] Discharge Planning Comments: CM MET WITH PATIENT AFTER OBTAINING VERBAL CONSENT. STATES PLANS TO DISCHARGE TO HOME. DISCUSSED NEED FOR HH, REHAB OR EQUIPMENT, PATIENT STATES NO NEEDS EXCEPT PORTABLE 02. STATES HE HAD PORTABLE BUT WHEN HIS INSURANCE CHANGED THEY TOOK IT. HAS 02 WITH [facility], I WILL CONTACT THEM TO SEE WHAT THE ISSUE IS WITH IT. CM WILL FOLLOW AND ASSIST NEEDED. Technical Services Consultant: Bonnie Gonzalez Appended by Bonnie Gonzalez on 05/28/2019 16:19 FISH PEDDLER: I SPOKE WITH DUANE AT [facility] AND THEY WILL NEED A WALK TEST BEFORE DISCHARGE SO THEY CAN SET HIM UP WITH PORTABLE OXYGEN. DCPIA - Discharge Planning Initial Assessment Updated by [id number]: Bonnie Gonzalez on 05/28/19 4:12 pm * Is the patient Alert and Oriented? Yes * PCP [facility] * Pharmacy [facility] * Preadmission Environment Home with Family * ADLs Independent * Other Equipment 02, NEBS, DID HAVE PORTABLE UNTIL INSURANCE CHANGED * List name and contact numbers for known caregivers / representatives who currently or will assist patient after discharge: JESSI, NIK, * Verbal permission to speak to the caregivers and representatives has been obtained from the patient. Yes * Community resources currently utilized None * Additional services required to return to the preadmission environment? No * Can the patient safely return to the preadmission environment? Yes * Has this patient been hospitalized within the prior 30 days at any hospital? No Last DP export: 05/28/19 3:28 p Patient Name: GAIL GALEANA Page 23541 at 1853 All edits/amendments must be made on the electronic document DICTATION DATE: 06/07/191851 FOOT CASTER: KAILEE 06/07/191851 RPT#: [id number] DC DATE: STATUS: ADM IN [facility] [address] [place] [address] END OF REPORT
--- NOTE | 2019-06-07 19:15 | NUR ---
PATIENT ALERT AND ORIENTED WHEN ENTERING THE ROOM. PATIENT TALKING ON CELL PHONE. APPEARS IN [employer]. CURRENTLY WEARING 1L OXYGEN VIA NASAL CANNULA. VSS. SPOKE WITH PATIENT ABOUT CHECKING BLOOD SUGARS. PATIENT WILL NEED MORE TEACHING PRIOR TO DISCHARGE. HAS A LEFT FOREARM IV THAT IS CURRENTLY SALINE LOCKED. NO REDNESS OR SWELLING NOTICED AT THE INSERTION SITE. PATIENT DENIES FURTHER NEEDS AT THIS TIME. REQUESTS TRAZODONE BE GIVEN AT A LATER TIME. DENIES FURTHER NEEDS. HAS CALL LIGHT IN REACH. CPOC.
[2019-06-07 20:00] VITALS: BP 162/88
[2019-06-08 00:21] VITALS: BP 166/88
[2019-06-08 04:00] VITALS: BP 139/67
[2019-06-08 04:34] LABS: HEMATOCRIT 45.9 % (42.0-54.0); MCH 30.8 pg (26.0-34.0); MCHC 32.7 g/dL (31.0-37.0); MCV 94.3 fL (80.0-100.0); MEAN PLATELET VOLUME 10.1 fL (7.4-10.4); PLATELET COUNT 324 10x3/uL (130-400); RBC 4.87 10x6/uL (4.20-6.10); RDW 14.7 % (11.5-14.5); WBC 25.2 10x3/uL (4.8-10.8)
[2019-06-08 04:51] LABS: ANION GAP 10.6 mmol/L (8-16); BILIRUBIN - TOTAL 0.31 mg/dL (0.2-1.3); CALCIUM 9.3 mg/dL (8.5-10.1); CARBON DIOXIDE 31.6 mmol/L (21.0-32.0); CREATININE - SERUM 1.3 mg/dL (0.6-1.3); POTASSIUM - SERUM 4.2 mmol/L (3.5-5.1); PROTEIN - SERUM 6.7 g/dL (6.4-8.2)
[2019-06-08 04:54] LABS: EOSINOPHILS 1 % (0-7); LYMPHOCYTES 5 % (15-50); MONOCYTES 5 % (2-11); NEUTROPHILS 81 % (40-80); PLATELET ESTIMATE NORMAL
--- NOTE | 2019-06-08 07:27 | NUR ---
ALERT AND ORIENTED. LUNGS DIMINISHED BILATERALLY. HEART SOUNDS S1 AND S2 HEARD IN ALL [place]. BOWEL SOUNDS ACTIVE X 4. SKIN INTACT WITHOUT REDNESS. IV TO LFA PATENT WITHOUT REDNESS. O2 IN PLACE VIA NC AT 1L. TELEMETRY IN PLACE SHOWING 70 NORMAL SINUS ON MONITOR. DENIES NEEDS. BED LOW. CALL WALSH AND PERSONAL ITEMS IN REACH. WILL CONTINUE TO MONITOR.
[2019-06-08 07:43] VITALS: BP 163/94
[2019-06-08 10:08] LABS: EBV - EARLY ANTIGEN AB IGG <9.0 U/mL (0.0-8.9); EBV - NUCLEAR ANTIGEN AB IGG <18.0 U/mL (0.0-17.9); EBV VIRAL CAPSID AB IGG 44.1 U/mL (0.0-17.9); EBV VIRAL CAPSID AB IGM <36.0 U/mL (0.0-35.9)
--- NOTE | 2019-06-08 10:14 | NUR ---
RESTING IN BED. DENIES NEEDS. WILL CONTINUE TO MONITOR.
--- NOTE | 2019-06-08 12:02 | NUR ---
PATIENT SLEEPING. WILL CONTINUE TO MONITOR.
[2019-06-08 12:48] VITALS: BP 161/79
[2019-06-08] MEDS ORDERED: DIFLUCAN100 MG PO (13:16)
[2019-06-08] MEDS ORDERED: BROVANA15 MCG/2 M INH (13:16)
[2019-06-08] MEDS ORDERED: Nystatin Oral Susp [ PO (13:16)
[2019-06-08] MEDS ORDERED: IPRAT-ALBUT 0.5-3 ML UPD (13:17)
[2019-06-08] MEDS ORDERED: MUCINEX DM ER1 EAC1 PO (13:18)
[2019-06-08] MEDS ORDERED: PROTONIX40 MG PO (13:19)
[2019-06-08] MEDS ORDERED: FLORAJEN3 CAPS460 MG PO (13:19)
[2019-06-08] MEDS ORDERED: PREDNISONE10 MG PO (13:19)
[2019-06-08] MEDS ORDERED: BREO ELLIPTA 21 EACH INH (13:19)
[2019-06-08] MEDS ORDERED: Daliresp PO (13:20)
--- NOTE | 2019-06-08 13:36 | MORECARE ---
CASE MANAGEMENT DISCHARGE SUMMARY PATIENT: GAIL GALEANA UNIT: [id number] ADM DATE: 05/27/19 AGE: 54 : 63 SEX: M ROOM/BED: D.2202 AUTHOR: KRYS,DOC PHYSICIAN: REFERRING PHYSICIAN: ANU MCKEON MD DATE OF SERVICE: 06/08/19 Discharge Plan Patient Name: GAIL GALEANA Facility: [facility]:[place] : 1965 Planned Disposition: Home Anticipated Discharge Date: Discharge Date: Expected LOS: Initial Reviewer: [email or web address] Initial Review Date: 05/28/2019 Generated: 06/08/19 2:35 pm Comments DCP- Discharge Planning Updated by [email or web address]: Bonnie Gonzalez on 06/08/19 12:[address] Patient Name: GAIL GALEANA Encounter No: [id number] : 1965 Primary Insurance: MEDICAID [place] Anticipated DC Date: Planned Disposition: Home External Planned Provider: : DCP follow-up note: Patient in agreement with discharge plan. No changes to plan. CM NOTIFIED DUANE OF [facility] OF [place] TODAY. CM WILL CONTACT HER WHEN HE IS LEAVING. Case management will follow and assist as needed. Bonnie Gonzalez DCP- Discharge Planning Updated by [email or web address]: Emelina Redman on 06/07/19 5:[address] Duane, with [facility] called and states the patient has an O2 tank to go home with, but will require a new WALK Test 12/15 am, in order to re-qualify. DCP- Discharge Planning Updated by [id number]: Bonnie Gonzalez on 05/28/19 3:[address] Patient Name: GAIL GALEANA Admission Status: ER Accout number: [id number] Admission Date: 05-27-2019 : 1965 Admission Diagnosis: Attending: ANU MCKEON Current LOS: 1 Anticipated DC Date: Planned Disposition: Home Primary Insurance: MEDICAID [place] Discharge Planning Comments: CM MET WITH PATIENT AFTER OBTAINING VERBAL CONSENT. STATES PLANS TO DISCHARGE TO HOME. DISCUSSED NEED FOR HH, REHAB OR EQUIPMENT, PATIENT STATES NO NEEDS EXCEPT PORTABLE 02. STATES HE HAD PORTABLE BUT WHEN HIS INSURANCE CHANGED THEY TOOK IT. HAS 02 WITH [facility], I WILL CONTACT THEM TO SEE WHAT THE ISSUE IS WITH IT. CM WILL FOLLOW AND ASSIST NEEDED. Welder Metal Fab: Bonnie Gonzalez Appended by Bonnie Gonzalez on 05/28/2019 16:19 INSTRUCTIONAL ASSISTANT: I SPOKE WITH DUANE AT [facility] AND THEY WILL NEED A WALK TEST BEFORE DISCHARGE SO THEY CAN SET HIM UP WITH PORTABLE OXYGEN. DCPIA - Discharge Planning Initial Assessment Updated by [id number]: Bonnie Gonzalez on 05/28/19 4:12 pm * Is the patient Alert and Oriented? Yes * PCP [facility] * [facility] * Preadmission Environment Home with Family * ADLs Independent * Other Equipment 02, NEBS, DID HAVE PORTABLE UNTIL INSURANCE CHANGED * List name and contact numbers for known caregivers / representatives who currently or will assist patient after discharge: JESSI, , * Verbal permission to speak to the caregivers and representatives has been obtained from the patient. Yes * Community resources currently utilized None * Additional services required to return to the preadmission environment? No * Can the patient safely return to the preadmission environment? Yes * Has this patient been hospitalized within the prior 30 days at any hospital? No Last DP export: 06/07/19 5:53 Patient Name: GAIL GALEANA Page [id number] at 1336 All edits/amendments must be made on the electronic document DICTATION DATE: 06/08/195 REPRODUCTION PRODUCTION MANAGER: KAILEE 06/08/19 1335 RPT#: [id number] DC DATE: STATUS: ADM IN [facility] [address] [place] [address] END OF REPORT
--- NOTE | 2019-06-08 13:42 | NUR ---
OFFERED PT FLU SHOT. HE DECLINED, STATES "I DON'T EVER CATCH THE FLU".
--- NOTE | 2019-06-08 13:57 | NUR ---
RX'S FOR DALIRESP AND NYSTATIN DID NOT E SCRIBE. CALLED TO [facility] AND SPOKE WITH ZULEYMA.
--- NOTE | 2019-06-08 14:26 | NUR ---
DISCHARGE EDUCATION PROVIDED BOTH WRITTEN AND VERBAL. VERBALIZED UNDERSTANDING. DENIES FURTHER QUESTIONS. IV REMOVED FROM [facility] WITH TIP INTACT. HOME O2 TANK SENT WITH PATIENT. STATES OTHER EQUIPMENT WILL BE ARRIVING AT HOUSE LATER TODAY. DENIES NEEDS. WAITING RIDE.
--- NOTE | 2019-06-08 15:07 | NUR ---
PATIENT DISCHARGED HOME WITH ALL BELONGINGS.
--- NOTE | 2019-06-08 15:28 | MORECARE ---
CASE MANAGEMENT DISCHARGE SUMMARY PATIENT: GAIL GALEANA UNIT: [id number] ADM DATE: 05/27/19 AGE: 54 : 63 SEX: M ROOM/BED: D.2202 AUTHOR: KRYSDOC PHYSICIAN: REFERRING PHYSICIAN: ANU MCKEON MD DATE OF SERVICE: 06/08/19 Discharge Plan Patient Name: GAIL GALEANA Facility: [facility]:[place] : 1965 Planned Disposition: Home Anticipated Discharge Date: 06/08/19 Discharge Date: 06/08/2019 Expected LOS: 12 Initial Reviewer: [email or web address] Initial Review Date: 05/28/2019 Generated: 06/08/19 4:27 pm Comments DCP- Discharge Planning Updated by [email or web address]: Bonnie Gonzalez on 06/08/19 12:[address] Patient Name: GIAL GALEANA Encounter No: [id number] : 1965 Primary Insurance: MEDICAID [place] Anticipated DC Date: Planned Disposition: Home External Planned Provider: : DCP follow-up note: Patient in agreement with discharge plan. No changes to plan. CM NOTIFIED DUANE OF [place] OF [place] TODAY. CM WILL CONTACT HER WHEN HE IS LEAVING. Case management will follow and assist as needed. Bonnie Gonzalez DCP- Discharge Planning Updated by [id number]: Emelina Redman on 06/07/19 5:[address] Duane, with [facility] called and states the patient has an O2 tank to go home with, but will require a new WALK Test 12/15 am, in order to re-qualify. DCP- Discharge Planning Updated by [id number]: Bonnie Gonzalez on 05/28/19 3:[address] Patient Name: GAIL GALEANA Admission Status: ER Accout number: [id number] Admission Date: 05-27-2019 : 1965 Admission Diagnosis: Attending: ANU MCKEON Current LOS: 1 Anticipated DC Date: Planned Disposition: Home Primary Insurance: MEDICAID [place] Discharge Planning Comments: CM MET WITH PATIENT AFTER OBTAINING VERBAL CONSENT. STATES PLANS TO DISCHARGE TO HOME. DISCUSSED NEED FOR HH, REHAB OR EQUIPMENT, PATIENT STATES NO NEEDS EXCEPT PORTABLE 02. STATES HE HAD PORTABLE BUT WHEN HIS INSURANCE CHANGED THEY TOOK IT. HAS 02 WITH [facility], I WILL CONTACT THEM TO SEE WHAT THE ISSUE IS WITH IT. CM WILL FOLLOW AND ASSIST NEEDED. Gore Maker: Bonnie Lisa Appended by Bonnie Gonzalez on 05/28/2019 16:19 HOME STEREO EQUIPMENT INSTALLER: I SPOKE WITH DUANE AT [facility] AND THEY WILL NEED A WALK TEST BEFORE DISCHARGE SO THEY CAN SET HIM UP WITH PORTABLE OXYGEN. DCPIA - Discharge Planning Initial Assessment Updated by [email or web address]: Bonnie Gonzalez on 05/28/19 4:12 pm * Is the patient Alert and Oriented? Yes * PCP [facility] * [facility] * Preadmission Environment Home with Family * ADLs Independent * Other Equipment 02, NEBS, DID HAVE PORTABLE UNTIL INSURANCE CHANGED * List name and contact numbers for known caregivers / representatives who currently or will assist patient after discharge: JESSI, , * Verbal permission to speak to the caregivers and representatives has been obtained from the patient. Yes * Community resources currently utilized None * Additional services required to return to the preadmission environment? No * Can the patient safely return to the preadmission environment? Yes * Has this patient been hospitalized within the prior 30 days at any hospital? No Last DP export: 06/08/19 12:36 Patient Name: GAIL GALEANA Page [id number] at 1528 All edits/amendments must be made on the electronic document DICTATION DATE: 06/08/191526 BOAT CANVAS INSTALLER: KAILEE 06/08/191526 RPT#: [id number] DC DATE:06/08/19 STATUS: DIS IN [facility] [address] [place] [address] END OF REPORT
--- NOTE | 2019-06-09 09:45 | MORECARE ---
CASE MANAGEMENT DISCHARGE SUMMARY PATIENT: GAIL GALEANA JR UNIT: [id number] ADM DATE: 05/27/19 AGE: 54 : 63 SEX: M ROOM/BED: D.2202 AUTHOR: KRYSDOC PHYSICIAN: REFERRING PHYSICIAN: ANU MCKEON MD DATE OF SERVICE: 06/09/19 Discharge Plan Patient Name: GAIL GALEANA Facility: [facility]:[place] : 1965 Planned Disposition: Home Anticipated Discharge Date: 06/08/19 Discharge Date: 06/08/2019 Expected LOS: 12 Initial Reviewer: [email or web address] Initial Review Date: 05/28/2019 Generated: 06/09/19 10:44 am Comments DCP- Discharge Planning Updated by [email or web address]: Bonnie Gonzalez on 06/09/19 8:[address] Patient Name: GAIL GALEANA Admission Status: ER Accout number: [id number] Admission Date: 05-27-2019 : 1965 Admission Diagnosis: Attending: ANU MCKEON Current LOS: 12 Anticipated DC Date: 06-08-2019 Planned Disposition: Home Primary Insurance: MEDICAID [place] Discharge Planning Comments: FA[facility]ED DOCUMENTS TO [facility]. Stock Saw Operator: Bonnie Gonzalez DCP- Discharge Planning Updated by [email or web address]: Bonnie Gonzalez on 06/08/19 12:[address] Patient Name: GIAL GALEANA Encounter No: [id number] : 1965 Primary Insurance: MEDICAID [place] Anticipated DC Date: Planned Disposition: Home External Planned Provider: : DCP follow-up note: Patient in agreement with discharge plan. No changes to plan. CM NOTIFIED DUANE OF [facility] OF [place] TODAY. CM WILL CONTACT HER WHEN HE IS LEAVING. Case management will follow and assist as needed. Bonnie Gonzalez DCP- Discharge Planning Updated by [email or web address]: Emelina Redman on 06/07/19 5:[address] Du[place], with [facility] called and states the patient has an O2 tank to go home with, but will require a new WALK Test 12/15 am, in order to re-qualify. DCP- Discharge Planning Updated by [email or web address]: Bonnie Gonzalez on 05/28/19 3:[address] Patient Name: GAIL GALEANA Admission Status: ER Accout number: [id number] Admission Date: 05-27-2019 : 1965 Admission Diagnosis: Attending: ANU MCKEON Current LOS: 1 Anticipated DC Date: Planned Disposition: Home Primary Insurance: [place]ID [place] Discharge Planning Comments: CM MET WITH PATIENT AFTER OBTAINING VERBAL CONSENT. STATES PLANS TO DISCHARGE TO HOME. DISCUSSED NEED FOR HH, REHAB OR EQUIPMENT, PATIENT STATES NO NEEDS EXCEPT PORTABLE 02. STATES HE HAD PORTABLE BUT WHEN HIS INSURANCE CHANGED THEY TOOK IT. HAS 02 WITH [facility], I WILL CONTACT THEM TO SEE WHAT THE ISSUE IS WITH IT. CM WILL FOLLOW AND ASSIST NEEDED. Stock Saw Operator: Bonnie Gonzalez Appended by Bonnie Gonzalez on 05/28/2019 16:19 MOTOR EQUIPMENT SERGEANT: I SPOKE WITH DUANE AT [facility] AND THEY WILL NEED A WALK TEST BEFORE DISCHARGE SO THEY CAN SET HIM UP WITH PORTABLE OXYGEN. DCPIA - Discharge Planning Initial Assessment Updated by [email or web address]: Bonnie Gonzalez on 05/28/19 4:12 pm * Is the patient Alert and Oriented? Yes * PCP [facility] * [facility] * Preadmission Environment Home with Family * ADLs Independent * Other Equipment 02, NEBS, DID HAVE PORTABLE UNTIL INSURANCE CHANGED * List name and contact numbers for known caregivers / representatives who currently or will assist patient after discharge: JESSI, , * Verbal permission to speak to the caregivers and representatives has been obtained from the patient. Yes * Community resources currently utilized None * Additional services required to return to the preadmission environment? No * Can the patient safely return to the preadmission environment? Yes * Has this patient been hospitalized within the prior 30 days at any hospital? No Last DP export: 06/08/19 2:28 Patient Name: GAIL GALEANA Page 53415 at 0945 All edits/amendments must be made on the electronic document DICTATION DATE: 06/09/19944 HISTORICAL INTERPRETER: KAILEE 06/09/19944 RPT#: [id number] DC DATE:06/08/19 STATUS: DIS IN [facility] [address] [place] [address] END OF REPORT
[2019-06-09 15:09] LABS: FUNGUS MYCOLOGY CULTURE Preliminary report (())
[2019-06-10 11:09] LABS: FUNGUS CULTURE RESULT 1 Candida albicans (())
--- NOTE | 2019-06-10 16:55 | MORECARE ---
CASE MANAGEMENT DISCHARGE SUMMARY PATIENT: GAIL GALEANA UNIT: [id number] ADM DATE: 05/27/19 AGE: 54 : 63 SEX: M ROOM/BED: D.2202 AUTHOR: KRYSDOC PHYSICIAN: REFERRING PHYSICIAN: ANU MCKEON MD DATE OF SERVICE: 06/10/19 Discharge Plan Patient Name: GAIL GALEANA Facility: [facility]:[place] : 1965 Planned Disposition: Home Anticipated Discharge Date: 06/08/19 Discharge Date: 06/08/2019 Expected LOS: 12 Initial Reviewer: [email or web address] Initial Review Date: 05/28/2019 Generated: 06/10/19 5:55 pm Comments DCP- Discharge Planning Updated by [email or web address]: Bonnie Gonzalez on 06/09/19 8:[address] Patient Name: GAIL GALEANA Admission Status: ER Accout number: [id number] Admission Date: 05-27-2019 : 1965 Admission Diagnosis: Attending: ANU MCKEON Current LOS: 12 Anticipated DC Date: 06-08-2019 Planned Disposition: Home Primary Insurance: MEDICAID [place] Discharge Planning Comments: FAXED DOCUMENTS TO [facility]. Gang Supervisor: Bonnie Gonzalez DCP- Discharge Planning Updated by [email or web address]: Bonnie Gonzalez on 06/08/19 12:[address] Patient Name: GAIL GALEANA Encounter No: [id number] : 1965 Primary Insurance: MEDICAID [place] Anticipated DC Date: Planned Disposition: Home External Planned Provider: : DCP follow-up note: Patient in agreement with discharge plan. No changes to plan. CM NOTIFIED DUANE OF [facility] OF [place] TODAY. CM WILL CONTACT HER WHEN HE IS LEAVING. Case management will follow and assist as needed. Bonnie Gonzalez DCP- Discharge Planning Updated by [email or web address]: Eemlina Redman on 06/07/19 5:[address] [place], with [facility] called and states the patient has an O2 tank to go home with, but will require a new WALK Test 12/15 am, in order to re-qualify. DCP- Discharge Planning Updated by [email or web address]: Bonnie Gonzalez on 05/28/19 3:[address] Patient Name: GAIL GALEANA Admission Status: ER Accout number: [id number] Admission Date: 05-27-2019 : 1965 Admission Diagnosis: Attending: ANU MCKEON Current LOS: 1 Anticipated DC Date: Planned Disposition: Home Primary Insurance: MEDICAID [place] Discharge Planning Comments: CM MET WITH PATIENT AFTER OBTAINING VERBAL CONSENT. STATES PLANS TO DISCHARGE TO HOME. DISCUSSED NEED FOR HH, REHAB OR EQUIPMENT, PATIENT STATES NO NEEDS EXCEPT PORTABLE 02. STATES HE HAD PORTABLE BUT WHEN HIS INSURANCE CHANGED THEY TOOK IT. HAS 02 WITH [facility], I WILL CONTACT THEM TO SEE WHAT THE ISSUE IS WITH IT. CM WILL FOLLOW AND ASSIST NEEDED. Gang Supervisor: Bonnie Gonzalez Appended by Bonnie Gonzalez on 05/28/2019 16:19 CONTENT ASSISTANT: I SPOKE WITH DUANE AT [facility] AND THEY WILL NEED A WALK TEST BEFORE DISCHARGE SO THEY CAN SET HIM UP WITH PORTABLE OXYGEN. DCPIA - Discharge Planning Initial Assessment Updated by [email or web address]: Bonnie Gonzalez on 05/28/19 4:12 pm * Is the patient Alert and Oriented? Yes * PCP [facility] * [facility] * Preadmission Environment Home with Family * ADLs Independent * Other Equipment 02, NEBS, DID HAVE PORTABLE UNTIL INSURANCE CHANGED * List name and contact numbers for known caregivers / representatives who currently or will assist patient after discharge: JESSI, , * Verbal permission to speak to the caregivers and representatives has been obtained from the patient. Yes * Community resources currently utilized None * Additional services required to return to the preadmission environment? No * Can the patient safely return to the preadmission environment? Yes * Has this patient been hospitalized within the prior 30 days at any hospital? No Last DP export: 06/09/19 8:45 Patient Name: GAIL GALEANA Page [phone] at 1656 All edits/amendments must be made on the electronic document DICTATION DATE: 06/10/191654 FAMILY CENTERED SPECIALIST: KAILEE 06/10/191654 RPT#: [id number] DC DATE:06/08/19 STATUS: DIS IN [facility] [address] [place] [address] END OF REPORT
== END 2019-06-08 15:08 | disposition home or self-care (01) | DRG 177 ==
LOC: D.ER 17:03 → D.M3 18:55 → D.MS 06-06 18:24
PROVIDERS: Emergency Medicine; Family Medicine; Internal Medicine Pulmonary Disease; ADMIT Internal Medicine Nephrology; ATTEND Internal Medicine Nephrology
DX: J69.0 Pneumonitis due to inhalation of food and vomit (principal); J96.21 Acute and chronic respiratory failure with hypoxia; N17.9 Acute kidney failure, unspecified; J98.11 Atelectasis; J20.9 Acute bronchitis, unspecified; I10 Essential (primary) hypertension; F41.9 Anxiety disorder, unspecified; J43.9 Emphysema, unspecified; D35.00 Benign neoplasm of unspecified adrenal gland; Z87.891 Personal history of nicotine dependence